=== PATIENT | female | born 1975 | race Caucasian/White ===

== ENCOUNTER 2022-01-12 10:27 | Emergency (ER) | payer OTHER ==
[~2022-01-12] VITALS: Ht 177.8 cm; Wt 112.5 kg
[2022-01-12 10:55] VITALS: BP 134/86
--- NOTE | 2022-01-12 11:17 | NUR ---
PT TAKEN TO XRAY
--- NOTE | 2022-01-12 11:27 | NUR ---
46 y/o female, pt states she fell on left foot last night. states pain has increased with swelling. pt states she broke digits on left foot last year. 5/10 pain. a&ox4, unable to bear weight on left side, pt is currently using son's crutches to ambulate. phm: asthma nka med: denies
[2022-01-12] MEDS ORDERED: IBUP-2213 PO (11:45)
[2022-01-12] MEDS ORDERED: IBUPROFEN 600 MG TAB PO SCH (11:50)
[2022-01-12 12:12] VITALS: BP 133/75
--- NOTE | 2022-01-12 12:41 | NUR ---
Patient discharged with v/s stable. Written and verbal after care instructions given and explained. Patient alert, oriented and verbalized understanding of instructions. Ambulatory with steady gait. All questions addressed prior to discharge. ID band removed. Patient advised to follow up with PMD. Rx of IBU given. Patient educated on indication of medication including possible reaction and side effects. Opportunity to ask questions provided and answered.
== END 2022-01-12 12:12 | disposition home or self-care (01) ==
LOC: MED 10:27
DX: S93.402A Sprain of unspecified ligament of left ankle, initial encounter (principal); S93.602A Unspecified sprain of left foot, initial encounter; J45.909 Unspecified asthma, uncomplicated; Z79.899 Other long term (current) drug therapy; X58.XXXA Exposure to other specified factors, initial encounter; Y93.39 Activity, other involving climbing, rappelling and jumping off; Y92.89 Other specified places as the place of occurrence of the external cause; Y99.8 Other external cause status
CPT/HCPCS: 73610; 73630; 99284